=== PATIENT | male | born 1995 | race Hispanic/Latino ===

== ENCOUNTER 2020-02-19 22:21 | Observation (INO) | payer BC ==
[2020-02-19 22:50] VITALS: BMI 43.7
[2020-02-19] MEDS ORDERED: ACETAMINOPHEN 500 MG TAB PO PRN (23:14)
[2020-02-20 06:31] LABS: HDL Cholesterol 40 mg/dL (40-60); LDL Cholesterol, Calculated 104 (<130); Troponin I < 0.02 ng/mL (0.0-0.045)
[2020-02-20 06:34] LABS: Albumin 3.5 g/dL (3.4-5.0); Bilirubin Total 0.2 mg/dL (0.2-1.0); Magnesium 2.2 mg/dL (1.8-2.4); Potassium 4.4 mmol/L (3.5-5.1); Thyroid Stimulating Hormone 2.51 uIU/mL (0.360-3.740)
[2020-02-20 06:37] LABS: Absolute Lymphocytes (CBC) 4.5 K/uL (0.7-4.9); Basophils % 0.4 % (0-1.3); Hematocrit 42.5 % (39.6-49.0); Lymphocytes % 36.4 % (15.3-44.8); MPV 8.7 fL (7.6-11.3); RBC Red Blood Cell Count 4.89 M/uL (4.33-5.43)
--- NOTE | 2020-02-20 07:24 | P.HP ---
Certification for Inpatient Patient admitted to: Observation With expected LOS: <2 Midnights Patient will require the following post-hospital care: None Practitioner: I am a practitioner with admitting privileges, knowledge of patient current condition, hospital course, and medical plan of care. Services: Services provided to patient in accordance with Admission requirements found in Title 42 Section 412.3 of the Code of Federal Regulations Patient History Date of Service: 02/19/20 Reason for admission: Chest pain and palpitations History of Present Illness: Patient is a 25-year-old gentleman who was in the emergency room at [facility]. Patient had been having chest pain and palpitations throughout the day. The night before he had drank a large cup of coffee form [employer]. Patient normally does not drink coffee. He has a history of hypertension for the last 2 years. His BMI is greater than 40. Patient has multiple risk factors and he also does not know his family history from his father site except that his mother states that a lot of them had diabetes. Patient had some questionable Q-waves in his inferior leads on his EKG from the other emergency room. Will check labs as well as other diagnostic studies early this morning. Will also get a cardiology consultation. The patient's workup is unremarkable then we anticipate he should be able to go home this morning. Allergies No Known Allergies Allergy (Unverified 02/19/20 22:38) Home Medications: Amlodipine [Norvasc*] 1 tab PO DAILY 02/19/20 Lisinopril [Zestril] 1 tab PO DAILY 02/19/20 - Past Medical/Surgical History Has patient received pneumonia vaccine in the past: No Diabetic: No -: HTN Past Surgical History: Patient denies surgical history - Family History Father History Unknown: Yes - Social History Smoking Status: Never smoker Alcohol use: No CD- Drugs: No Caffeine use: Yes Place of Residence: Home Review of Systems 10-point ROS is otherwise unremarkable Physical Examination - Vital Signs Temperature: 97.6 F Blood Pressure: 104/59 Pulse: 83 Respirations: 18 Pulse Ox (%): 97 - Physical Exam General: Alert, In no apparent distress, Oriented x3 HEENT: Atraumatic, PERRLA, Mucous membr. moist/pink, EOMI, Sclerae nonicteric Neck: Supple, 2+ carotid pulse no bruit, No LAD, Without JVD or thyroid abnormality Respiratory: Clear to auscultation bilaterally, Normal air movement Cardiovascular: Regular rate/rhythm, Normal S1 S2, No murmurs Gastrointestinal: Normal bowel sounds, Soft and benign, Non-distended, No tenderness, No rebound, No guarding Musculoskeletal: No clubbing, No swelling, No tenderness Integumentary: No rashes Neurological: Normal gait, Normal speech, Normal strength at 5/5 x4 extr, Normal tone, Sensation intact, Cranial nerves 3-12 intact, Normal affect Lymphatics: No axilla or inguinal lymphadenopathy - Studies Laboratory Data (last 24 hrs) 02/20/20 05:52: Troponin I < 0.02, Triglycerides 112, Cholesterol 166, HDL Cholesterol 40, Cholesterol/HDL Ratio 4.15 02/20/20 05:52: Sodium 138, Potassium 4.4, BUN 18, Creatinine 1.08, Glucose 101, Phosphorus 3.0, Magnesium 2.2, Total Bilirubin 0.2, AST 12 L, ALT 39, Alkaline Phosphatase 104 02/20/20 05:52: WBC 12.4 H, Hgb 14.4, Hct 42.5, Plt Count 323 Assessment & Plan - Problems (Diagnosis) (1) Chest pain, rule out acute myocardial infarction Current Visit: Yes Status: Acute (2) Palpitations Current Visit: Yes Status: Acute - Plan 1. Serial troponins and repeat EKG 2. Cardiology consultation 3. Echocardiogram and further diagnostic testing pending cardiology evaluation 4. Anti-platelet therapy, check lipid profile, check thyroid studies 5. Strict blood pressure control 6. Repeat labs in a.m. 7. GI and DVT prophylaxis Discharge Plan: Home Plan to discharge in: Greater than 2 days - Advance Directives Does patient have a Living Will: No Does patient have a Durable POA for Healthcare: No - Code Status/Comfort Care Code Status Assessed: Yes Code Status: Full Code Critical Care: No Time Spent Managing PTS Care (In Minutes): 45
--- NOTE | 2020-02-20 07:32 | RAD REPORT ---
EXAM DESCRIPTION: RAD - Chest Single View - 02/20/2020 5:17 am CLINICAL HISTORY: Pleuritic chest pain COMPARISON: None TECHNIQUE: AP portable chest image was obtained 02/20/2020 5:17 am . FINDINGS: Detail is limited by portable technique and large body habitus. Lung volumes are low. No focal lung parenchymal process. No failure or volume overload. Heart and vas culature are normal. No measurable pleural effusion and no pneumothorax. No acute bony abnormality se en. No acute aortic findings suspected. IMPRESSION: No acute cardiopulmonary process.
--- NOTE | 2020-02-20 07:33 | P.DS ---
Discharge Date: 02/20/20 Reason for Admission: Chest pain and palpitations Consultations: Cardiology consultation - Problems (1) Chest pain, rule out acute myocardial infarction Current Visit: Yes Status: Acute (2) Palpitations Current Visit: Yes Status: Acute Brief History of Present Illness: Patient is a 25-year-old gentleman who was in the emergency room at [facility]. Patient had been having chest pain and palpitations throughout the day. The night before he had drank a large cup of coffee form [employer]. Patient normally does not drink coffee. He has a history of hypertension for the last 2 years. His BMI is greater than 40. Patient has multiple risk factors and he also does not know his family history from his father site except that his mother states that a lot of them had diabetes. Patient had some questionable Q-waves in his inferior leads on his EKG from the other emergency room. Will check labs as well as other diagnostic studies early this morning. Will also get a cardiology consultation. The patient's workup is unremarkable then we anticipate he should be able to go home this morning. Vital Signs/Physical Exam: Temp Pulse Resp BP Pulse Ox 97.6 F 83 18 104/59 L 97 02/20/20 07:30 02/20/20 07:30 02/20/20 07:30 02/20/20 07:30 02/20/20 07:30 General: Alert, In no apparent distress, Oriented x3 Laboratory Data at Discharge: WBC 12.4 K/uL (4.3-10.9) H 02/20/20 05:52 Hgb 14.4 g/dL (13.6-17.9) 02/20/20 05:52 Hct 42.5 % (39.6-49.0) 02/20/20 05:52 Plt Count 323 K/uL (152-406) 02/20/20 05:52 Sodium 138 mmol/L (136-145) 02/20/20 05:52 Potassium 4.4 mmol/L (3.5-5.1) 02/20/20 05:52 BUN 18 mg/dL (7-18) 02/20/20 05:52 Creatinine 1.08 mg/dL (0.55-1.3) 02/20/20 05:52 Glucose 101 mg/dL (74-106) 02/20/20 05:52 Phosphorus 3.0 mg/dL (2.5-4.9) 02/20/20 05:52 Magnesium 2.2 mg/dL (1.8-2.4) 02/20/20 05:52 Total Bilirubin 0.2 mg/dL (0.2-1.0) 02/20/20 05:52 AST 12 U/L (15-37) L 02/20/20 05:52 ALT 39 U/L (12-78) 02/20/20 05:52 Alkaline Phosphatase 104 U/L (45-117) 02/20/20 05:52 Troponin I < 0.02 ng/mL (0.0-0.045) 02/20/20 05:52 Triglycerides 112 mg/dL (<150) 02/20/20 05:52 Cholesterol 166 mg/dL (<200) 02/20/20 05:52 HDL Cholesterol 40 mg/dL (40-60) 02/20/20 05:52 Cholesterol/HDL Ratio 4.15 02/20/20 05:52 Home Medications: Amlodipine [Norvasc*] 1 tab PO DAILY 02/19/20 Lisinopril [Zestril] 1 tab PO DAILY 02/19/20 Patient Discharge Instructions: OK TO DC IV AND DC HOME. FOLLOW-UP WITH PRIMARY CARE PROVIDER IN 1-2 WEEKS. FOLLOW-UP WITH CARDIOLOGY IN 1-2 WEEKS. RETURN TO THE ER IF symptoms worsen. CALL or TEXT DR. PATEL AT [phone] IF ANY QUESTIONS REGARDING HOSPITAL STAY. PLEASE CALL THE FLOOR AT [phone] IF ANY MEDICATION OR NURSING QUESTIONS. Diet: AHA Activity: Fall precautions Time spent managing pt's care (in minutes): 25
[2020-02-20] MEDS ORDERED: ENOXAPARIN 40 MG/0.4 ML SQ SCH (09:00)
[2020-02-20] MEDS ORDERED: ASPIRIN EC 81 MG TAB PO SCH (09:00)
--- NOTE | 2020-02-20 10:19 | CON ---
Date of Consultation: 02/20/2020 Reason For Consultation: Chest pain and palpitation. History Of Present Illness: Mr. Cochran is a 25-year-old male. He has a past medical history of h ypertension for which he takes Norvasc and lisinopril. He does drinks a lot of diet drinks. Denied any alcohol. Denies drug abuse or caffeine abuse. He does weighed 296 pounds. He developed some ch est pressure when he woke up yesterday. The last one was all day and was in the upper left chest. N o nausea, vomiting, diaphoresis, PND, orthopnea, pedal edema. Later on that day, he had 2 palpitatio ns and sharp stabbing chest pain in the same region. He is asymptomatic now. He had a normal EKG. Normal blood work. Normal chest x-ray. He ruled out for an HI. He is asymptomatic now. Telemetry showed normal sinus rhythm. Past Medical History: Includes hypertension. Allergies: NONE. Review of Systems: Negative. Social History: Negative. Family History: Negative. Physical Examination: Vital Signs: He weighed 296 pounds. HEENT: Negative. Neck: Supple. No bruit. Chest: Clear. Cardiac: Revealed regular rhythm and rate. No murmurs, gallops, or rubs. Abdomen: Benign. Extremities: Revealed no clubbing, cyanosis, or edema. Diagnostic Data: As stated earlier. Assessment And Plan: Atypical chest pain with palpitation. I am sure the chest pain is noncardiac i n nature. The pattern is not consistent with it. Chest pressure lasted all day. The other pain is sharp, stabbing, probably musculoskeletal or pleuritic. Patient has not had any fever or chills. Pa lpitations are little bit concerning. Echocardiogram was ordered today. If that is normal, I agree could go home. Watch his diet. Watch his carbohydrate intake. Watch his caffeine intake. I will s ee him in the office if symptoms continuous. I am not too eager to put him on a beta-brenda right n ow and may make his weight increase, but I will consider that down the road if his symptoms come back . He can go home after the echo. TERESA/MARIA EUGENIAL Voice ID: [id number] Report ID: [id number]
[2020-02-20 10:34] VITALS: O2SAT 98
--- NOTE | 2020-02-20 11:44 | P.DS ---
Admission Date: 02/19/20 Discharge Date: 02/20/20 Primary Care Provider: Dr. Palm Disposition: ROUTINE DISCHARGE Discharge Condition: GOOD Reason for Admission: Chest pain and palpitations Consultations: Cardiology-Dr. Guadalupe Procedures: Echocardiogram: Unremarkable. Medical problem list: Chest pain, atypical with palpitations History of hypertension Obesity, BMI 43.8 Brief History of Present Illness: 25-year-old male presented to [facility] for chest pain. Patient was evaluated there initially. Initial cardiac enzymes unremarkable. Patient also reported some palpitation. The patient was transferred to our facility to continue further evaluation. Hospital Course: Patient presented with chest pain. Cardiac enzymes unremarkable. Patient seen and evaluated by Cardiology. Patient also reported palpitation. Patient has done well. Echocardiogram unremarkable. At discharge he is without significant chest pain. Cardiology feels chest pain atypical. Patient with underlying hypertension. Patient previously on Norvasc 10 mg daily and lisinopril 40 mg daily. Blood pressures have been well controlled off medication at this time. Both were held during the course of his stay. At discharge will recommend to discontinue both Norvasc and lisinopril due to normal blood pressures off medication. Will recommend to monitor his blood pressures daily. He is to keep a log of his blood pressures. If blood pressures remain above 140/90 consistently, then patient may be restarted on lisinopril 10 mg daily. A prescription for lisinopril 10 mg 1 pill daily will be provided. Patient may also take aspirin 81 mg daily. Medication can be further monitored and adjusted by his PCP or cardiology. Recommend follow up with cardiology in 1-2 weeks to follow up this hospitalization. Patient may require further cardiac outpatient evaluation with possible Holter monitor if chest pain persists. Patient with obesity, BMI 43.8. Lifestyle modification education provided. Heart healthy diet recommended. Patient should be consider evaluation for sleep apnea. This can be further addressed by his PCP. Vital Signs/Physical Exam: Temp Pulse Resp BP Pulse Ox 97.8 F 74 20 112/73 98 02/20/20 08:00 02/20/20 08:00 02/20/20 08:00 02/20/20 08:00 02/20/20 08:00 General: Alert, In no apparent distress, Oriented x3, Cooperative HEENT: Atraumatic Neck: Supple Respiratory: Clear to auscultation bilaterally, Normal air movement Cardiovascular: Normal pulses, Regular rate/rhythm Gastrointestinal: Normal bowel sounds, Soft and benign, Non-distended, No masses, No rebound, No guarding Neurological: Normal speech, Normal strength at 5/5 x4 extr, Normal tone, Normal affect Laboratory Data at Discharge: WBC 12.4 K/uL (4.3-10.9) H 02/20/20 05:52 Hgb 14.4 g/dL (13.6-17.9) 02/20/20 05:52 Hct 42.5 % (39.6-49.0) 02/20/20 05:52 Plt Count 323 K/uL (152-406) 02/20/20 05:52 Sodium 138 mmol/L (136-145) 02/20/20 05:52 Potassium 4.4 mmol/L (3.5-5.1) 02/20/20 05:52 BUN 18 mg/dL (7-18) 02/20/20 05:52 Creatinine 1.08 mg/dL (0.55-1.3) 02/20/20 05:52 Glucose 101 mg/dL (74-106) 02/20/20 05:52 Phosphorus 3.0 mg/dL (2.5-4.9) 02/20/20 05:52 Magnesium 2.2 mg/dL (1.8-2.4) 02/20/20 05:52 Total Bilirubin 0.2 mg/dL (0.2-1.0) 02/20/20 05:52 AST 12 U/L (15-37) L 02/20/20 05:52 ALT 39 U/L (12-78) 02/20/20 05:52 Alkaline Phosphatase 104 U/L (45-117) 02/20/20 05:52 Troponin I < 0.02 ng/mL (0.0-0.045) 02/20/20 05:52 Triglycerides 112 mg/dL (<150) 02/20/20 05:52 Cholesterol 166 mg/dL (<200) 02/20/20 05:52 HDL Cholesterol 40 mg/dL (40-60) 02/20/20 05:52 Cholesterol/HDL Ratio 4.15 02/20/20 05:52 Home Medications: Aspirin [Aspirin EC 81 MG] 81 mg PO DAILY #90 tablet.dr 02/20/20 Lisinopril [Zestril] 10 mg PO DAILY #30 tablet 02/20/20 New Medications: Aspirin [Aspirin EC 81 MG] 81 mg PO DAILY #90 tablet. Lisinopril [Zestril] 10 mg PO DAILY #30 tablet Patient Discharge Instructions: 1. Recommend follow up with PCP in 1 week to follow up this hospitalization. 2. Patient presented with chest pain. Cardiac enzymes unremarkable. Patient seen and evaluated by Cardiology. Patient also reported palpitation. Patient has done well. Echocardiogram unremarkable. At discharge he is without significant chest pain. Cardiology feels chest pain atypical. Patient with underlying hypertension. Patient previously on Norvasc 10 mg daily and lisinopril 40 mg daily. Blood pressures have been well controlled off medication at this time. Both were held during the course of his stay. At discharge will recommend to discontinue both Norvasc and lisinopril due to normal blood pressures off medication. Will recommend to monitor his blood pressures daily. He is to keep a log of his blood pressures. If blood pressures remain above 140/90 consistently, then patient may be restarted on lisinopril 10 mg daily. A prescription for lisinopril 10 mg 1 pill daily will be provided. Patient may also take aspirin 81 mg daily. Medication can be further monitored and adjusted by his PCP or cardiology. Recommend follow up with cardiology in 1-2 weeks to follow up this hospitalization. Patient may require further cardiac outpatient evaluation with possible Holter monitor if chest pain persists. 3. Patient with obesity, BMI 43.8. Lifestyle modification education provided. Heart healthy diet recommended. Patient should be consider evaluation for sleep apnea. This can be further addressed by his PCP. Diet: AHA Activity: Fall precautions Time spent managing pt's care (in minutes): 55
[2020-02-20 12:28] VITALS: BP 134/68; TEMP 97.7
--- NOTE | 2020-02-21 09:33 | ECHO ---
HEIGHT: 5 ft 9 in WEIGHT: 296 lb 9 oz DATE OF STUDY: 02/20/[address]: Vaibhav Meadows MD 2-DIMENSIONAL: YES M.MODE: YES DOPPLER: YES COLOR FLOW: YES TDS: PORTABLE: DEFINITY: BUBBLE STUDY: DIAGNOSIS: PALPITATIONS CARDIAC HISTORY: CATHERIZATION: NO SURGERY: NO PROSTHETIC VALVE: NO PACEMAKER: NO MEASUREMENTS (cm) DIASTOLIC (NORMALS) SYSTOLIC (NORMALS) IVSd 1.2 (0.6-1.2) LA Diam 4.7 (1.9-4.0) LVEF 67% LVIDd 5.3 (3.5-5.7) LVIDs 3.4 (2.0-3.5) %FS 37% LVPWd 1.3 (0.6-1.2) Ao Diam 2.2 (2.0-3.7) 2 DIMENSIONAL ASSESSMENT: RIGHT ATRIUM: NORMAL LEFT ATRIUM: NORMAL RIGHT VENTRICLE: NORMAL LEFT VENTRICLE: NORMAL TRICUSPID VALVE: NORMAL MITRAL VALVE: NORMAL PULMONIC VALVE: NORMAL AORTIC VALVE: NORMAL PERICARDIAL EFFUSION: NONE AORTIC ROOT: NORMAL LEFT VENTRICULAR WALL MOTION: NORMAL DOPPLER/COLOR FLOW: NORAML COMMENTS: NORMAL 2-DIMENSIONAL ECHOCARDIOGRAM WITH DOPPLER. NO WALL MOTION ABNORMALITY. NO EFFUSION. TECHNOLOGIST: [place]
== END 2020-02-20 13:57 | disposition home or self-care (01) ==
LOC: 2ND 22:21
PROVIDERS: ADMIT Hospitalist; ATTEND Hospitalist
DX: R07.89 Other chest pain (principal); R00.2 Palpitations; I10 Essential (primary) hypertension
CPT/HCPCS: 93306; 85025; 36415; 83735; 84100; 80061; 85379; 84443; 84484; 84439; 80053; 71045; J1650; G0379; G0378 ×2